=== PATIENT | female | born 2005 | race Caucasian/White ===

== ENCOUNTER 2023-07-15 01:58 | Emergency (ER) | payer OTHER ==
[~2023-07-15] VITALS: Ht 162.6 cm; Wt 81.8 kg
[2023-07-15] MEDS ORDERED: Rabies Immune Globulin PF 300 UNITS/2 ML VIAL IM ONE (03:00)
[2023-07-15 03:45] VITALS: BP 119/79; PULSE 83; TEMP 98.5
== END 2023-07-15 03:45 | disposition home or self-care (01) ==
LOC: COL.ER 01:58
DX: S61.452A Open bite of left hand, initial encounter (principal); Z23 Encounter for immunization; W55.01XA Bitten by cat, initial encounter